=== PATIENT | male | born 1950 | race Caucasian/White ===

== ENCOUNTER 2016-07-30 14:59 | Emergency (ER) | payer OTHER ==
--- NOTE | 2016-07-30 15:18 | EDPHY ---
H & P Stated Complaint: right hip pain - Personal History Current Tetanus/Diphtheria Vaccine: Unsure Current Tetanus Diphtheria and Acellular Pertussis (TDAP): Unsure - Medical/Surgical History Hx Asthma: No Hx Chronic Respiratory Disease: No Hx Diabetes: No Hx Cardiac Disease: No Hx Renal Disease: No Hx Cirrhosis: No Hx Alcoholism: No Hx HIV/AIDS: No Hx Splenectomy or Spleen Trauma: No Other PMH: R hip replacement in 2014 - Social History Smoking Status: Never smoked Time Seen by Provider: 07/30/16 15:12 HPI/ROS: Chief complaint: Right hip pain History of present illness: This is a 66-year-old male who presents to the emergency department via EMS for right hip pain. Patient is concerned he dislocated his right hip. Patient had a right total hip replacement 2 years ago in [facility]. He dislocated it 1 year ago. He states today he was bending over putting on snow shoes when he felt a pop, this feels similar to when he dislocated his hip previously. He denies other associated signs or symptoms including no direct trauma to the site, no paresthesias or abnormal coolness the leg. No other trauma reported. Review of systems: A 10 point review of systems was obtained and other than described above was negative (Chema Terry) - Physical Exam Exam: General Appearance: Alert, nontoxic. Eyes: Pupils equal and round no injection. ENT: Mucous membranes moist. Respiratory: Chest is non tender, lungs are clear to auscultation. Cardiovascular: Regular rate and rhythm. DP and PT pulses 2+ bilaterally. Gastrointestinal: Abdomen is soft and non tender, no masses, bowel sounds normal. Musculoskeletal: Patient is tender in the right hip region. His right leg is shortened. He does not want to move the hip secondary to pain. He can move the ankle and the digits in the foot. Skin: No rashes or lesions. (Chema Terry) Constitutional: Initial Vital Signs Temperature (C) 36.6 C 07/30/16 15:04 Heart Rate 74 07/30/16 15:04 Respiratory Rate 18 07/30/16 15:04 Blood Pressure 155/104 H 07/30/16 15:04 O2 Sat (%) 97 07/30/16 15:04 O2 Delivery Mode [Procedural Non-Rebreather Mask 4th] O2 Delivery Mode [Procedural Non-Rebreather Mask 3rd] O2 Delivery Mode [Procedural Non-Rebreather Mask 2nd] O2 Delivery Mode [Procedural Non-Rebreather Mask 1st] O2 Delivery Mode [.Immediate Non-Rebreather Mask Pre-Procedure] O2 Delivery Mode Room Air O2 (L/minute) [Procedural 4th] 15 O2 (L/minute) [Procedural 3rd] 15 O2 (L/minute) [Procedural 2nd] 15 O2 (L/minute) [Procedural 1st] 15 O2 (L/minute) [.Immediate Pre- 15 Procedure] Allergies/Adverse Reactions: No Known Allergies Allergy (Unverified 03/17/15 16:59) Home Medications: Medication Instructions Recorded EPINEPHrine [Epipen] 0.3 mg IM ONCE #2 syr 03/17/15 predniSONE [prednisone 10mg (RX)] 40 mg PO DAILY 3 Days 03/17/15 Medical Decision Making - Diagnostics Imaging: Right hip x-ray shows a posterior dislocation Post reduction hip x-ray shows anatomic alignment (Chema Terry) Procedures: Procedure: Conscious sedation. Indication: Hip dislocation I was asked by DEBORAH Scruggs, to perform procedural sedation. The patient is an appropriate candidate to tolerate procedural sedation. The patient's vitals signs and mental status are appropriate. The risks, benefits and alternatives of the sedation were discussed with the patient. The patient is ASA classification 1E. The patient's Mallampati airway score was 2 and the patient did meet the 3-3-2 airway measurements. A time out was completed at 1604. The patient was sedated with 100mg IV Propofol. The patient was monitored with continuous pulse oximetry, system archive analyst and end tidal CO2. There were no complications and no significant hypoxemia. I performed both the sedation. The total time I spent at the bedside during the procedural sedation was 15 minutes. The patient was examined after the procedural sedation and has returned to their pre-sedation baseline with normal vital signs and a normal examination. (Angelique Grossman) Conscious sedation was performed by my primary supervising physician Dr. Angelique Grossman, please see report for complete details Procedure: Dislocation reduction. The dislocation of the right hip was reduced using standard traction technique without complications. Post reduction the patient's neurovascular exam is normal. Post reduction x-ray demonstrates reduction of the joint to the anatomic position. The procedure was performed by myself. (Chema Terry) ED Course/Re-evaluation: 1158: I was asked by DEBORAH Scruggs, to perform the procedural sedation. I examined the patient at this time. He is an appropriate candidate for sedation. His lungs are clear to auscultation and he has no significant pertinent medical history that would contraindicate the procedure. (Angelique Grossman) Patient seen in conjunction with my primary supervising physician Dr. Angelique Grossman. Patient presents to the emergency department concerned he has dislocated his right hip. X-ray confirms a dislocation. The leg is neurovascularly intact. I have consulted with Orthopedic group, Dr. Billy, he is comfortable with us reducing it in the emergency department. It is successfully reduced. He remains neurovascularly intact. Patient will be discharged home. He is asked to follow up with his orthopedic doctor this week for recheck. Strict return precautions are given. Patient voiced understanding and agreement with plan. (Chema Terry) Differential Diagnosis: Included but not limited to dislocation, fracture, sprain or strain (Chema Terry) - Data Points Medications Given: Discontinued Medications Hydromorphone HCl (Dilaudid) 1 mg IVP EDNOW ONE Stop: 07/30/16 15:31 Last Admin: 07/30/16 15:38 Dose: 1 mg Sodium Chloride (Ns) 1,000 mls @ 0 mls/hr IV ONCE ONE PRN Reason: Wide Open Stop: 07/30/16 16:33 Last Admin: 07/30/16 16:00 Dose: 1,000 mls Ondansetron HCl (Zofran) 4 mg IVP EDNOW ONE Stop: 07/30/16 15:32 Last Admin: 07/30/16 15:38 Dose: 4 mg Propofol (Diprivan) 100 mg IVP EDNOW ONE Stop: 07/30/16 16:34 Last Admin: 07/30/16 16:09 Dose: 100 mg Departure - Departure Disposition: Home, Routine, Self-Care Clinical Impression: Hip dislocation, right Condition: Good Instructions: Hip Dislocation (ED) Additional Instructions: Follow-up with your orthopedic doctor, Dr. Mcduffie, this week for recheck If symptoms recur or new symptoms develop return to the emergency department for recheck Referrals: Momo Ford MD [Primary Care Provider] - As per Instructions Floyd Mcduffie MD [Medical Doctor] - As per Instructions
[2016-07-30] MEDS ORDERED: HYDROmorphONE/DILAUDID 1 MG/ML SYR IVP ONE (15:30)
[2016-07-30] MEDS ORDERED: ONDANSETRON 4 MG/2 ML VIAL IVP ONE (15:31)
[2016-07-30] MEDS ORDERED: PROPOFOL/EMULSION 1,000 MG/100 ML BOTTLE IV ONE (15:47)
[2016-07-30] MEDS ORDERED: PROPOFOL 200 MG/20 ML VIAL ONE (15:52)
[2016-07-30] MEDS ORDERED: NS 1,000 ML IV ONE (16:32)
[2016-07-30] MEDS ORDERED: PROPOFOL 200 MG/20 ML VIAL IVP ONE (16:33)
--- NOTE | 2016-07-30 16:37 | DX ---
AP Supine Pelvis and Crosstable Lateral View of the Right Hip, 2 Views at 3:20 p.m. Clinical History: 66-year-old male who has had a prior right hip replacement and a prior dislocation, presenting to the ED complaining of right hip pain. Comparison Study: Right hip, dated May 16, 2015. Findings: The right total hip arthroplasty is again noted and the femoral head component is dislocate d superior to the prosthetic acetabular cup, very similar to the prereduction images on the study of May 16, 2015. The left hip is anatomically aligned. Impression: Dislocated right hip arthroplasty.
--- NOTE | 2016-07-30 17:01 | DX ---
Right Hip, Two Views History: Post reduction study. Comparison: Comparison to the previous examination from July 30, 2016 at 1528 hours. Findings: The superior dislocation of the femoral head prosthesis has been reduced with resultant mendy tomic alignment. No fracture is seen. Impression: Anatomic alignment of the total right hip arthroplasty following reduction.
[2016-07-30 17:25] VITALS: BP 143/87; PULSE 71; RESP 16; TEMP 98.8; O2SAT 97
== END 2016-07-30 17:26 | disposition home or self-care (01) ==
LOC: EDUNIT#
PROC: 0SS Lower Joints, Reposition (ICD-10-PCS; principal; 2016-07-30)
DX: T84.020A Dislocation of internal right hip prosthesis, initial encounter (principal); X58.XXXA Exposure to other specified factors, initial encounter; Y82.8 Other medical devices associated with adverse incidents; Y93.89 Activity, other specified
CPT/HCPCS: 27265; 73502; 96361; 96374; 96375; 99156; 99285; J1170; J2405; J2704

== ENCOUNTER → 2017-07-24 | Outpatient (CLI) | payer OTHER | LOC: BMCIMAGING 11:36 | PROVIDERS: ATTEND Internal Medicine | DX: J98.6 Disorders of diaphragm (principal) ==

== ENCOUNTER 2017-11-17 14:39 | Emergency (ER) | payer OTHER ==
[2017-11-17] MEDS ORDERED: HYDROmorphONE/DILAUDID 2 MG/ML INJ IVP ONE (14:53)
[2017-11-17] MEDS ORDERED: MIDAZOLAM 2 MG/2 ML VIAL IVP ONE (14:53)
--- NOTE | 2017-11-17 14:56 | EDPHY ---
H & P Stated Complaint: R hip pain Time Seen by Provider: 11/17/17 14:50 HPI/ROS: CHIEF COMPLAINT: Right hip dislocation HISTORY OF PRESENT ILLNESS: Patient is a 67-year-old man who comes to the emergency department complaining of right hip pain. He states that he was bending forward and a dislocated. This is a 3rd time it has happened in 4 year since it was replaced. It was done in [facility]. He follows here with Dr. Mcduffie who says that needs to be redone. He has normal movement in his ft. He denies other injuries. This happened just prior to arrival. REVIEW OF SYSTEMS: Constitutional: denies: chills, fever, recent illness, recent injury EENTM: denies: blurred vision, double vision, nose congestion Respiratory: denies: cough, shortness of breath Cardiac: denies: chest pain, irregular heart rate, lightheadedness, palpitations Gastrointestinal/Abdominal: denies: abdominal pain, diarrhea, nausea, vomiting, blood streaked stools Genitourinary: denies: dysuria, frequency, hematuria, pain Musculoskeletal: See HPI Skin: denies: lesions, rash, jaundice, bruising Neurological: denies: headache, numbness, paresthesia, tingling, dizziness, weakness Hematologic/Lymphatic: denies: blood clots, easy bleeding, easy bruising Immunologic/allergic: denies: HIV/AIDS, transplant EXAM: GENERAL: Well-appearing, well-nourished and in no acute distress. HEAD: Atraumatic, normocephalic. EYES: Pupils equal round and reactive to light, extraocular movements intact, sclera anicteric, conjunctiva are normal. ENT: TMs normal, nares patent, oropharynx clear without exudates. Moist mucous membranes. NECK: Normal range of motion, supple without lymphadenopathy or JVD. LUNGS: Breath sounds clear to auscultation bilaterally and equal. No wheezes rales or rhonchi. HEART: Regular rate and rhythm without murmurs, rubs or gallops. ABDOMEN: Soft, nontender, normoactive bowel sounds. No guarding, no rebound. No masses appreciated. BACK: No CVA tenderness, no spinal tenderness, step-offs or deformities EXTREMITIES: Right hip pain the leg held in flexion. Normal pulses and movement distally. NEUROLOGICAL: Cranial nerves II through XII grossly intact. Normal speech, normal gait. 5/5 strength, normal movement in all extremities, normal sensation PSYCH: Normal mood, normal affect. SKIN: Warm, dry, normal turgor, no visible rashes or lesions. Source: Patient Exam Limitations: No limitations - Personal History Current Tetanus/Diphtheria Vaccine: Unsure Current Tetanus Diphtheria and Acellular Pertussis (TDAP): Unsure - Medical/Surgical History Hx Asthma: No Hx Chronic Respiratory Disease: No Hx Diabetes: No Hx Cardiac Disease: No Hx Renal Disease: No Hx Cirrhosis: No Hx Alcoholism: No Hx HIV/AIDS: No Hx Splenectomy or Spleen Trauma: No Other PMH: R hip replacement in 2014, arthritis - Family History Significant Family History: No pertinent family hx - Social History Smoking Status: Never smoked Alcohol Use: Sober Drug Use: None Constitutional: Initial Vital Signs Temperature (C) 36.8 C 11/17/17 14:51 Heart Rate 85 11/17/17 14:51 Respiratory Rate 18 11/17/17 14:51 Blood Pressure 154/104 H 11/17/17 14:51 O2 Sat (%) 96 11/17/17 14:51 O2 Delivery Mode [Post Non-Rebreather Mask Procedure 2nd] O2 Delivery Mode [Post Non-Rebreather Mask Procedure 1st] O2 Delivery Mode [Procedural Non-Rebreather Mask 3rd] O2 Delivery Mode [Procedural Non-Rebreather Mask 2nd] O2 Delivery Mode [Procedural Non-Rebreather Mask 1st] O2 Delivery Mode [.Immediate Non-Rebreather Mask Pre-Procedure] O2 Delivery Mode Room Air O2 (L/minute) [Post Procedure 12 2nd] O2 (L/minute) [Procedural 3rd] 12 O2 (L/minute) [Procedural 2nd] 12 O2 (L/minute) [Procedural 1st] 12 O2 (L/minute) [.Immediate Pre- 12 Procedure] O2 (L/minute) 2 Allergies/Adverse Reactions: No Known Allergies Allergy (Verified 11/17/17 14:49) Home Medications: Medication Instructions Recorded Hydrocodone/APAP 5/325 [[place] 1 - 2 tab PO Q4H PRN #10 tab 11/17/17 5/325 (RX)] Meloxicam 11/17/17 Temazepam 11/17/17 Medical Decision Making - Diagnostics Imaging Results: Imaging Impressions Hip X-Ray 11/17/17 14:54 Impression: Superior right hip dislocation. Hip X-Ray 11/17/17 16:02 Impression: Good reduction of right total hip arthroplasty. Imaging: Discussed imaging studies w/ call or contact centre coach Radiologist Procedures: Procedure: Procedural sedation. Indication: The hip reduction A pre-sedation evaluation was completed on the patient just prior to the procedure. Patient is an appropriate candidate for procedural sedation with a [ normal] 3-3-2 rule assessment and a Mallampati airway score of class 2. The risks of the sedation were discussed including but not limited to dysrhythmia, need for airway intervention or general anesthesia, disability, ; and verbal consent obtained. A timeout was observed and patient's identity confirmed. The patient was sedated with ketamine and propofol. The patient was monitored with continuous pulse oximetry, capnography, and electronic device monitor. There were no complications and no significant hypoxemia. I remained at the bedside for the sedation. The total time I spent in the procedural sedation was 25 min. Orthopedic reduction: The patient is a tolerated the procedure well. Post reduction films are successful. ED Course/Re-evaluation: Patient was given Versed and Dilaudid initially and then later sedated with ketamine and propofol. He tolerated this well and his hip was reduced successfully on the 2nd attempt. 5:30 p.m. patient is doing much better. He feels much better. He is still slightly sedated. Differential Diagnosis: Partial list of the Differential diagnosis considered include but were not limited to; hip dislocation, fracture and although unlikely based on the history and physical exam, I also considered nerve injury, vascular injury. I discussed these differential diagnoses and the plan with the patient as well as the usual and expected course. The patient understands that the diagnosis is provisional and that in medicine we are not always correct and that further workup is often warranted. Usual and customary warnings were given. All of the patient's questions were answered. The patient was instructed to return to the emergency department should the symptoms at all worsen or return, otherwise to followup with the physician as we discussed. - Data Points Medications Given: Discontinued Medications Hydromorphone HCl (Dilaudid) 1 mg IVP EDNOW ONE Stop: 11/17/17 14:54 Last Admin: 11/17/17 15:20 Dose: 1 mg Ketamine HCl (Ketamine) 90 mg IVP EDNOW ONE Stop: 11/17/17 16:06 Last Admin: 11/17/17 16:05 Dose: 90 mg Ketamine HCl (Ketamine) 30 mg IVP EDNOW ONE Stop: 11/17/17 16:09 Last Admin: 11/17/17 16:08 Dose: 30 mg Ketamine HCl (Ketamine) 50 mg IVP EDNOW ONE Stop: 11/17/17 16:13 Last Admin: 11/17/17 16:12 Dose: 50 mg Midazolam HCl (Versed) 5 mg IVP EDNOW ONE Stop: 11/17/17 14:54 Last Admin: 11/17/17 15:24 Dose: 5 mg Propofol (Diprivan) 40 mg IVP EDNOW ONE Stop: 11/17/17 16:29 Last Admin: 11/17/17 16:12 Dose: 40 mg Departure - Departure Disposition: Home, Routine, Self-Care Clinical Impression: Hip dislocation, right Qualifiers: Encounter type: initial encounter Qualified Code(s): S73.004A - Unspecified dislocation of right hip, initial encounter Condition: Fair Instructions: Hip Dislocation (ED) Referrals: Patient,NotPresent [Primary Care Provider] - As per Instructions Floyd Mcduffie MD [Medical Doctor] - As per Instructions Prescriptions: Hydrocodone/APAP 5/325 [[place] 5/325 (RX)] 1 - 2 tab PO Q4H PRN #10 tab PRN Reason: Pain, Moderate
[2017-11-17] MEDS ORDERED: KETAMINE 200 MG/20 ML VIAL ONE (15:56)
[2017-11-17] MEDS ORDERED: PROPOFOL 200 MG/20 ML VIAL ONE (15:57)
[2017-11-17] MEDS ORDERED: KETAMINE 200 MG/20 ML VIAL IVP ONE ×2 (16:05→16:12)
[2017-11-17] MEDS ORDERED: KETAMINE 500 MG/10 ML VIAL IVP ONE (16:08)
[2017-11-17] MEDS ORDERED: PROPOFOL 200 MG/20 ML VIAL IVP ONE (16:28)
--- NOTE | 2017-11-17 16:52 | ASMTCAGE ---
CAGE Do you feel you ought to Answers: Yes cut down on your drinking or drug use? Do people annoy you by Answers: No criticizing your drinking or drug use? Do you feel guilty about Answers: No your drinking or drug use? Do you drink or use drugs Answers: No first thing in the morning (Eye French Translator)? Additional Comments Pt states he "has been going back and forth about quitting." Offered pt resources, pt unsure if he'd like them at this time. Per HERNAN Simmons, pt received conscious sedation prior to answering questions. CM will need to follow up with pt. Date Signed: 11/17/2017 04:51 PM Electronically Signed By:Cassie Cerda RN
--- NOTE | 2017-11-17 17:00 | ASMTCMCOM ---
CM Note CM Note Notes: Pt presented to the Emergency Department with a right hip dislocation. History includes two other hip dislocations and hip surgery. Pt lives alone in [place]. Met with pt secondary to a positive SBIRT screen. Pt reports drinking 2-4 drinks/day, 7 days/week. He states he drinks beer or vodka. CAGE completed. Pt reports "going back and forth about quitting." Offered pt resources, pt unsure if he'd like them at this time. Per HERNAN Simmons, pt received conscious sedation prior to questioning. Discharge plan remains unclear at this time. If pt is admitted, CM will continue to follow and will offer resources again prior to d/c. Date Signed: 11/17/2017 05:00 PM Electronically Signed By:Cassie Cerda RN
--- NOTE | 2017-11-17 18:39 | ASMTCMCOM ---
CM Note CM Note Notes: Asked to see pt by HERNAN Simmons for assistance with transportation. Met with pt - pt lives above [place]. Pt declines having any friends or family in the area. Pt reports having the ability to pay for a taxi cab home. Pt diaphoretic, pale and feeling disoriented. [place] alerted. Pt not ready for discharge at this time. Attempted to speak with pt about alcohol use/resources again. Pt feeling too poorly and foggy, not appropriate time for alcohol discussion. Encouraged pt to avoid alcohol use this evening following discharge. Call placed to [facility] at pt's request . Spoke with Sumit, confirmed a taxi would be available to transport pt 5 miles beyond [place] this evening ([address] [place] [address], [place] [address]). Sumit confirmed and verified cost would be $2.25/mile. Sumit stated pt may have to prepay for trip with a credit card. Update provided to ARSLAN Lopez, HERNAN [place] and pt - pt agreeable to prepaying. Information for discharge provided to Rosemarie. CM available for any further issues or concerns. Date Signed: 11/17/2017 06:39 PM Electronically Signed By:Cassie Cerda RN
[2017-11-17 18:49] VITALS: BP 143/108
== END 2017-11-17 18:54 | disposition home or self-care (01) ==
LOC: EDUNIT#
PROC: 0SS9XZZ Reposition Right Hip Joint, External Approach (ICD-10-PCS; principal; 2017-11-17)
DX: T84.020A Dislocation of internal right hip prosthesis, initial encounter (principal); Y79.2 Prosthetic and other implants, materials and accessory orthopedic devices associated with adverse incidents
CPT/HCPCS: 27265; 73502; 96374; 96375; 99152; 99285; J1170; J2250; J2704

== ENCOUNTER 2017-11-19 01:09 | Emergency (ER) | payer OTHER ==
[2017-11-19] MEDS ORDERED: PROPOFOL 200 MG/20 ML VIAL ONE ×2 (01:20)
--- NOTE | 2017-11-19 01:20 | EDPHY ---
H & P Stated Complaint: R hip dislocation Time Seen by Provider: 11/19/17 01:14 HPI/ROS: HPI The patient presents with presumed right hip dislocation which occurred at about 11:00 p.m. Last night. The patient has a history of right hip arthroplasty of some sort performed and [facility]. He has had multiple dislocations of this hip, last was just 2 days ago. He was getting out of bed when he felt a pop and felt that his hip was dislocated. He called 911 and he is transferred here by paramedics. He received a total of fentanyl 300 mcg and ketamine 200 mg. He is unable to provide much history at this point in time. REVIEW OF SYSTEMS Constitutional: No fever, no chills. Eyes: No discharge. ENT: No sore throat. Cardiovascular: No chest pain, no palpitations. Respiratory: No cough, no shortness of breath. Gastrointestinal: No abdominal pain, no vomiting. Genitourinary: No hematuria. Musculoskeletal: No back pain. Skin: No rashes. Neurological: No headache. PMHx: [place], now being followed by Dr. Mcduffie, likely will require revision. Soc Hx: [place], marijuana use PHYSICAL General Appearance: Alert, no distress Eyes: Pupils equal and round no pallor or injection ENT, Mouth: Mucous membranes moist Respiratory: There are no retractions, lungs are clear to auscultation Cardiovascular: Regular rate and rhythm Gastrointestinal: Abdomen is soft and non-tender, no masses, bowel sounds normal Neurological: A&O, moves all extremities Skin: Warm and dry, no rashes Musculoskeletal: Neck is supple non tender Extremities: Right hip is tender to palpation with limited range of motion secondary to pain, 2+ DP pulses, sensation intact to light touch Psychiatric: Patient is oriented X 3, there is no agitation Source: Patient, EMS, Old records Exam Limitations: No limitations - Personal History Current Tetanus Diphtheria and Acellular Pertussis (TDAP): Yes - Medical/Surgical History Hx Asthma: No Hx Chronic Respiratory Disease: No Hx Diabetes: No Hx Cardiac Disease: No Hx Renal Disease: No Hx Cirrhosis: No Hx Alcoholism: No Hx HIV/AIDS: No Hx Splenectomy or Spleen Trauma: No Other PMH: R hip replacement in 2014, arthritis - Social History Smoking Status: Never smoked Constitutional: Initial Vital Signs Temperature (C) 36.6 C 11/19/17 01:15 Heart Rate 84 11/19/17 01:15 Respiratory Rate 16 11/19/17 01:15 Blood Pressure 172/108 H 11/19/17 01:15 O2 Sat (%) 96 11/19/17 01:15 O2 Delivery Mode [Post Non-Rebreather Mask Procedure 2nd] O2 Delivery Mode [Post Non-Rebreather Mask Procedure 1st] O2 Delivery Mode [Procedural Non-Rebreather Mask 2nd] O2 Delivery Mode [Procedural Non-Rebreather Mask 1st] O2 Delivery Mode [.Immediate Non-Rebreather Mask Pre-Procedure] O2 Delivery Mode Room Air O2 (L/minute) [Post Procedure 15 2nd] O2 (L/minute) [Post Procedure 15 1st] O2 (L/minute) [Procedural 2nd] 15 O2 (L/minute) [Procedural 1st] 15 O2 (L/minute) [.Immediate Pre- 15 Procedure] O2 (L/minute) 15 Allergies/Adverse Reactions: No Known Allergies Allergy (Verified 11/19/17 01:15) Home Medications: Medication Instructions Recorded Hydrocodone/APAP 5/325 [[place] 1 - 2 tab PO Q4H PRN #10 tab 11/17/17 5/325 (RX)] Meloxicam 11/17/17 Temazepam 11/17/17 Medical Decision Making - Diagnostics Imaging Results: Right hip plain films two views show hip dislocation, interpreted by me, radiology interpretation pending. Repeat right hit plain film single view shows prosthesis in appropriate position , interpreted by wa, radiology interpretation pending. Procedures: PROCEDURAL SEDATION Procedure: Procedural sedation. Indication: Right hip dislocation The patient is an appropriate candidate to tolerate procedural sedation. The patient's vital signs and mental status are appropriate. The risks, benefits and alternatives of the sedation were discussed with the patient. The patient is ASA classification 2. The patient's Mallampati airway score was 1 and the patient did meet the 3-3-2 airway measurements. A time out was completed. The patient was sedated with propofol fall 90 mg. The patient was monitored with continuous pulse oximetry, media monitor and end tidal CO2. There were no complications and no significant hypoxemia. I performed both the sedation and the procedure. The total time I spent at the bedside during the procedural sedation was 10 minutes. The patient was examined after the procedural sedation and has returned to their pre-sedation baseline with normal vital signs and a normal examination. REDUCTION Procedure: Dislocation reduction. Indication: Dislocation The right hip was reduced in the usual fashion without complications. Post reduction the patient's neurovascular exam is normal. Post reduction x-ray demonstrates reduction of the joint to the anatomic position. The procedure was performed by myself. Differential Diagnosis: 67-year-old male with history of right hip total arthroplasty and frequent dislocation presents with right hip pain with presumed dislocation. He is brought in by ambulance, he is sedated and received fentanyl and ketamine prior to arrival here. As I attempted dislocation at the bedside without success. Plan for x-ray. X-ray demonstrates hip is dislocated. Patient underwent procedural sedation with appropriate reduction of his hip. Given that this is his 2nd dislocation in 2 days I consulted with the orthopedist contact center analyst for Dr. Mcduffie, Dr. De Oliveira. He recommends placing the patient in a knee immobilizer and discharging the patient. Dr. Mcduffie will be in the clinic this morning and can see the patient for further evaluation. The patient is okay with this plan. He was placed in a knee immobilizer and discharged. - Data Points Medications Given: Discontinued Medications Fentanyl (Sublimaze) 100 mcg IVP EDNOW ONE Stop: 11/19/17 02:31 Last Admin: 11/19/17 02:30 Dose: 100 mcg Ibuprofen (Motrin) 600 mg PO EDNOW ONE Stop: 11/19/17 03:57 Last Admin: 11/19/17 03:57 Dose: 600 mg Propofol (Diprivan) 90 mg IVP EDNOW ONE Stop: 11/19/17 02:32 Last Admin: 11/19/17 02:30 Dose: 90 mg Departure - Departure Disposition: Home, Routine, Self-Care Clinical Impression: Hip dislocation, right Qualifiers: Encounter type: initial encounter Qualified Code(s): S73.004A - Unspecified dislocation of right hip, initial encounter Condition: Good Instructions: Hip Dislocation (ED), Procedural Sedation (ED) Additional Instructions: You should call Dr. Mcduffie in the morning to make an appointment to be seen in the next 1-2 days. Please keep the knee immobilizer in place. Referrals: Floyd Mcduffie MD [Medical Doctor] - As per Instructions
[2017-11-19] MEDS ORDERED: fentaNYL 100 MCG/2 ML INJ ONE (02:03)
[2017-11-19] MEDS ORDERED: fentaNYL 100 MCG/2 ML INJ IVP ONE (02:30)
[2017-11-19] MEDS ORDERED: PROPOFOL 200 MG/20 ML VIAL IVP ONE (02:31)
[2017-11-19] MEDS ORDERED: IBUPROFEN 600 MG TAB PO ONE ×2 (03:55→03:56)
[2017-11-19] MEDS ORDERED: ONDANSETRON 4 MG/2 ML VIAL ONE (05:07)
[2017-11-19] MEDS ORDERED: ONDANSETRON 4 MG/2 ML VIAL IVP ONE (05:09)
[2017-11-19 05:18] VITALS: BP 131/68
== END 2017-11-19 05:48 | disposition home or self-care (01) ==
LOC: EDUNIT#
PROC: 0SS9XZZ Reposition Right Hip Joint, External Approach (ICD-10-PCS; principal; 2017-11-19)
DX: T84.020A Dislocation of internal right hip prosthesis, initial encounter (principal); Y79.2 Prosthetic and other implants, materials and accessory orthopedic devices associated with adverse incidents
CPT/HCPCS: 27265; 73502; 96374; 96375; 99152; 99285; J2405; J2704; J3010; L1830

== ENCOUNTER 2017-11-20 08:39 | Emergency (ER) | payer OTHER ==
[2017-11-20] MEDS ORDERED: PROPOFOL 200 MG/20 ML VIAL IVP ONE (09:19)
[2017-11-20] MEDS ORDERED: fentaNYL 100 MCG/2 ML INJ IVP ONE (09:19)
[2017-11-20] MEDS ORDERED: MIDAZOLAM 2 MG/2 ML VIAL IVP ONE (09:19)
[2017-11-20] MEDS ORDERED: MIDAZOLAM 10 MG/2 ML VIAL ONE (09:22)
[2017-11-20] MEDS ORDERED: fentaNYL 100 MCG/2 ML INJ ONE (09:22)
[2017-11-20] MEDS ORDERED: PROPOFOL 200 MG/20 ML VIAL ONE (09:22)
--- NOTE | 2017-11-20 09:25 | EDPHY ---
H & P Stated Complaint: R hip disloc Time Seen by Provider: 11/20/17 09:22 HPI/ROS: HPI: This is a 67-year-old male who presents with Chief Complaint: Right hip dislocation Location: Right hip Quality: Dislocation Duration: 2 and 0.5 hr prior to arrival Signs and Symptoms: No bleeding, no radiation, no numbness, no weakness, no tingling, no incontinence, + decreased range of motion, no swelling,+ pain, no fever Timing: Acute Severity: Moderate Context: Patient reports that she had a total right posterior hip arthroplasty in [facility] presents today via EMS with right hip dislocation around 7:00 a.m. He reports that he was lying in bed wearing his knee immobilizer with a wedged between his legs. He shifted to the side and felt his right hip dislocate with immediate, constant, severe pain[place] EMS to transport him down to the emergency room. Patient reports that this is his 5th right hip dislocation since his surgery. He follows with Dr. Mcduffie. He was seen in this emergency room for the same problem on 11/17 as well as 11/19. Patient reports that the ketamine that they gave him last time made him hallucinate and he is refusing for to be given this time. He is able to move his lower leg and wiggle his toes without any difficulty. Denies paresthesias/numbness. Modifying Factors: EMS gave pain medications en route Comment: ROS: see HPI Constitutional: No fever, no chills, no weight loss Eyes: No blurred vision Respiratory: No shortness of breath, no cough Cardiovascular: No chest pain Gastrointestinal: No nausea, no vomiting no diarrhea Genitourinary: No dysuria Extremities: No myalgias Neurologic: No weakness, no numbness Skin: No rashes Hematologic: No bruising, no bleeding MEDICAL/SURGICAL/SOCIAL HISTORY: Medical history: Generally healthy. Does not take any regular medications. Surgical history: Right total hip arthroplasty Social history: Nonsmoker. Retired. CONSTITUTIONAL: Pleasant elderly white male, lying flat on his back, awake and alert, no obvious distress HEENT: Atraumatic and normocephalic. NECK: supple, no midline tenderness, flexion 45 degrees, extension 45 degrees, right and left lateral flexion 45 degrees. No meningismus. Cardiovascular: Normal S1/S2, regular rate, regular rhythm, without murmur rub or gallop. PULMONARY/CHEST: Symmetrical and nontender. no crepitus. Clear to auscultation bilaterally. Good air movement. No accessory muscle usage. ABDOMEN: Soft, nondistended, nontender, no ecchymosis. PELVIC: no pain with rocking; bilateral hips flexion 125 degrees, extension 30 degrees, with no pain internal rotation and no pain external rotation. BACK: No midline tenderness, no paraspinous spasm, deep tendon reflexes 2/2, no pain with straight leg raise, No foot drop. Achilles reflexes are equal bilaterally. Able to walk on heels and toes without difficulty. EXTREMITIES: 2/2 pulses, strength 5/5, right lower extremity shows him wearing pants and a right knee immobilizer. Able to feel his toes and wiggle all 5. Right leg is externally rotated with mild tenderness over the greater trochanter. good light touch sensation. no deformities, no clubbing, no cyanosis or edema. NEUROLOGICAL: no focal neuro deficits. GCS 15. Light touch sensation intact. SKIN: Warm and dry, no erythema. no rash. Good capillary refill. Source: Patient, Old records Exam Limitations: No limitations - Medical/Surgical History Hx Asthma: No Hx Chronic Respiratory Disease: No Hx Diabetes: No Hx Cardiac Disease: No Hx Renal Disease: No Hx Cirrhosis: No Hx Alcoholism: No Hx HIV/AIDS: No Hx Splenectomy or Spleen Trauma: No Other PMH: R hip replacement in 2014, arthritis - Social History Smoking Status: Never smoked Constitutional: Initial Vital Signs Temperature (C) 37.1 C 11/20/17 08:43 Heart Rate 79 11/20/17 08:43 Respiratory Rate 16 11/20/17 08:43 Blood Pressure 149/101 H 11/20/17 08:43 O2 Sat (%) 95 11/20/17 08:43 O2 Delivery Mode [Post Non-Rebreather Mask Procedure 1st] O2 Delivery Mode [Procedural Non-Rebreather Mask 2nd] O2 Delivery Mode [Procedural Non-Rebreather Mask 1st] O2 Delivery Mode Non-Rebreather Mask O2 (L/minute) [Post Procedure 15 1st] O2 (L/minute) [Procedural 2nd] 15 O2 (L/minute) [Procedural 1st] 15 O2 (L/minute) 15 Allergies/Adverse Reactions: ketamine Allergy (Verified 11/20/17 08:47) Home Medications: Medication Instructions Recorded Hydrocodone/APAP 325 [[place] 1 - 2 tab PO Q4H PRN #10 tab 11/17/17 5/325 (RX)] Meloxicam 11/17/17 Temazepam 11/17/17 Medical Decision Making - Diagnostics Imaging Results: Imaging Impressions Hip X-Ray 11/20/17 08:45 Impression: Recurrent right hip dislocation. Pelvis X-Ray 11/20/17 09:56 Impression: Apparent interval reduction of right hip dislocation, as assessed on this single AP view. Procedures: Procedure: Procedural sedation. A pre-sedation evaluation was completed on the patient at 0935. Patient is an appropriate candidate for procedural sedation. The risks of the sedation were discussed with the patient. A time out was completed. The patient was sedated with Versed 5 mg, fentanyl 100 mcg, propofol 40 mg. The patient was monitored with continuous pulse oximetry and security monitor. There were no complications and no significant hypoxemia. I remained at the bedside for the sedation. The total time I spent in the procedural sedation was 9412-5492. Procedure: Dislocation reduction. The dislocation of the right hip was reduced using counter traction technique without complications. Post reduction the patient's neurovascular exam is normal. Post reduction x-ray demonstrates reduction of the joint to the anatomic position. The procedure was performed by myself. ED Course/Re-evaluation: Right hip x-ray obtained upon arrival; reviewed via PACs and shows recurrent hip dislocation. Moved to trauma room for procedural sedation. Will give Versed 5 mg, fentanyl 100 mcg and Propofol 40 mg to start. Reduction performed with counter traction x1 attempt. 1000: ED decision to consult Orthopedics as is the patient's 3rd dislocation in 1 week. He lives alone. Would benefit from admission and surgery to correct hardware deficit. 1012: Post reduction x-ray at bedside reviewed by myself and shows normal anatomic alignment without any chip fractures Spoke with Dr. Calero who also consulted Dr. Champagne who was willing to consult and schedule outpatient hip replacement revision surgery. They recommend hip abduction orthosis. [facility] consulted to come and fit the patient for this brace in the emergency room. 1130: Reassessed patient who reports that pain is minimal. Updated him on plan and he feels comfortable with this at this time. 1315: Fitted for orthotic. Ambulating down held her restroom and room without any pain or discomfort. Patient is to call Dr. Thomas office to follow up outpatient to reschedule total hip arthroplasty revision. Cap called to be transported home. No signs of neurovascular compromise/tenting of skin/compartment syndrome/ extremities and joints examined above and below area of concern and are neurovascularly intact. This patient was seen under the supervision of my secondary supervising physician. I evaluated care for this patient independently. Discussed this patient with Dr. Galvez who did not see the patient. Differential Diagnosis: Differential diagnosis includes but is not limited to right hip dislocation, nerve injury, musculoskeletal strain, hardware malfunction. - Data Points Medications Given: Discontinued Medications Fentanyl (Sublimaze) 100 mcg IVP EDNOW ONE Stop: 11/20/17 09:20 Last Admin: 11/20/17 09:35 Dose: 100 mcg Midazolam HCl (Versed) 5 mg IVP EDNOW ONE Stop: 11/20/17 09:20 Last Admin: 11/20/17 09:35 Dose: 5 mg Propofol (Diprivan) 40 mg IVP EDNOW ONE Stop: 11/20/17 09:20 Last Admin: 11/20/17 09:35 Dose: 40 mg Departure - Departure Disposition: Home, Routine, Self-Care Clinical Impression: History of total right hip replacement Dislocation of hip, right, closed Qualifiers: Encounter type: initial encounter Qualified Code(s): S73.004A - Unspecified dislocation of right hip, initial encounter Condition: Good Instructions: Hip Dislocation (ED), Procedural Sedation (ED) Additional Instructions: Please limit mobility and wear hip abduction orthotic continuously except to shower. Activity: Do not bear weight or use injured extremity until seen by your referral physician. Follow-Up: Please follow-up as noted above. Follow-up sooner if your condition worsens or if you develop any new problems. Call as soon as possible for an appointment. Be clear when you call for an appointment that this is an Emergency Department follow-up. Contact the Emergency Department if you have trouble arranging follow-up care. Our referrals are not based on your insurance network. When time allows, contact your insurance carrier to verify the referral physician is in your plan. If not, get a referral for an in-network operations analyst. Referrals: Jerry Champagne MD [Medical Doctor] - As per Instructions
[2017-11-20 13:31] VITALS: BP 132/85
== END 2017-11-20 13:28 | disposition home or self-care (01) ==
LOC: EDUNIT#
DX: T84.020A Dislocation of internal right hip prosthesis, initial encounter (principal); Z96.641 Presence of right artificial hip joint; Y79.2 Prosthetic and other implants, materials and accessory orthopedic devices associated with adverse incidents
CPT/HCPCS: 27265; 72170; 73502; 99152; 99153; 99285; J2250; J2704; J3010

== ENCOUNTER 2017-11-21 07:03 | Inpatient (IN) | payer OTHER ==
[2017-11-21] MEDS ORDERED: DIAZEPAM 5 MG/ML 1 ML SYR IVP ONE (07:08)
--- NOTE | 2017-11-21 07:11 | EDPHY ---
H & P Time Seen by Provider: 11/21/17 07:06 HPI/ROS: CHIEF COMPLAINT: Right hip dislocation HISTORY OF PRESENT ILLNESS: The patient is a 67-year-old man this is his 4th visit in the last 5 days for right hip dislocation. He had his hip replaced in [facility] few years ago. It is dislocated several times a needs to be revised. He was seen by me here a few days ago and reduced and follow up with Dr. Mcduffie. They had revision planned. Since then however he has been back twice and now this is his 4th visit for the same thing. On his 2nd visit he was given a knee brace which did not seem to help. On the 3rd visit which was yesterday Wardrobe Specialist came and placed him in a hip brace. Today he was lying in bed with the brace on when he rotated to get out of bed and his hip again dislocated. He has normal movement and sensation in his leg distally. REVIEW OF SYSTEMS: Constitutional: denies: chills, fever, recent illness, recent injury EENTM: denies: blurred vision, double vision, nose congestion Respiratory: denies: cough, shortness of breath Cardiac: denies: chest pain, irregular heart rate, lightheadedness, palpitations Gastrointestinal/Abdominal: denies: abdominal pain, diarrhea, nausea, vomiting, blood streaked stools Genitourinary: denies: dysuria, frequency, hematuria, pain Musculoskeletal: See HPI Skin: denies: lesions, rash, jaundice, bruising Neurological: denies: headache, numbness, paresthesia, tingling, dizziness, weakness Hematologic/Lymphatic: denies: blood clots, easy bleeding, easy bruising Immunologic/allergic: denies: HIV/AIDS, transplant EXAM: GENERAL: Well-appearing, well-nourished and in no acute distress. HEAD: Atraumatic, normocephalic. EYES: Pupils equal round and reactive to light, extraocular movements intact, sclera anicteric, conjunctiva are normal. ENT: TMs normal, nares patent, oropharynx clear without exudates. Moist mucous membranes. NECK: Normal range of motion, supple without lymphadenopathy or JVD. LUNGS: Breath sounds clear to auscultation bilaterally and equal. No wheezes rales or rhonchi. HEART: Regular rate and rhythm without murmurs, rubs or gallops. ABDOMEN: Soft, nontender, normoactive bowel sounds. No guarding, no rebound. No masses appreciated. BACK: No CVA tenderness, no spinal tenderness, step-offs or deformities EXTREMITIES: Right hip dislocation, significant pain, normal movement of knee and foot. Normal pulses. NEUROLOGICAL: Cranial nerves II through XII grossly intact. Normal speech, normal gait. 5/5 strength, normal movement in all extremities, normal sensation PSYCH: Normal mood, normal affect. SKIN: Warm, dry, normal turgor, no visible rashes or lesions. Source: Patient Exam Limitations: No limitations - Medical/Surgical History Hx Asthma: No Hx Chronic Respiratory Disease: No Hx Diabetes: No Hx Cardiac Disease: No Hx Renal Disease: No Hx Cirrhosis: No Hx Alcoholism: No Hx HIV/AIDS: No Hx Splenectomy or Spleen Trauma: No Other PMH: R hip replacement in 2014, arthritis - Family History Significant Family History: No pertinent family hx - Social History Smoking Status: Never smoked Alcohol Use: Sober Drug Use: None Constitutional: Initial Vital Signs Temperature (C) 36.8 C 11/21/17 07:14 Heart Rate 67 11/21/17 07:14 Respiratory Rate 16 11/21/17 07:14 Blood Pressure 146/89 H 11/21/17 07:14 O2 Sat (%) 92 11/21/17 07:14 O2 Delivery Mode [Procedural Room Air 2nd] O2 Delivery Mode [Procedural Non-Rebreather Mask 1st] O2 Delivery Mode [.Immediate Non-Rebreather Mask Pre-Procedure] O2 Delivery Mode Room Air O2 (L/minute) [Procedural 1st] 15 O2 (L/minute) [.Immediate Pre- 15 Procedure] Allergies/Adverse Reactions: ketamine Allergy (Verified 11/20/17 08:47) Home Medications: Medication Instructions Recorded Meloxicam 7.5 mg PO BID PRN 11/17/17 Temazepam [Restoril 15 MG (*)] 15 mg PO HSPRN PRN 11/17/17 Albuterol [Proventil Inhaler HFA 1 - 2 puffs IH DAILY PRN 11/21/17 (*)] Glucosamine Sulfate [Glucosamine 500 mg PO DAILY 11/21/17 Sulfate 500 MG (*)] Hydrocodone/APAP 5/325 [[place] 1 - 2 tab PO Q4H PRN 11/21/17 5/325 (RX)] Ibuprofen [Motrin (*)] 200 mg PO DAILY PRN 11/21/17 Multivitamins [Multivitamin (*)] 1 each PO DAILY 11/21/17 Tears/Dextran 70/Hypromellose 1 drop EACHEYE Q2 PRN 11/21/17 [Natural Balance Tears (*)] amLODIPine BESYLATE [Norvasc 5 mg 5 mg PO DAILY 11/21/17 (*)] Medical Decision Making - Diagnostics Imaging Results: Imaging Impressions Hip X-Ray 11/21/17 07:13 Impression: Superior right hip dislocation. Imaging: I viewed and interpreted images myself Procedures: Procedure: Procedural sedation. Indication: Orthopedic reduction. A pre-sedation evaluation was completed on the patient just prior to the procedure. Patient is an appropriate candidate for procedural sedation with a normal 3-3-2 rule assessment and a Mallampati airway score of class 2. The risks of the sedation were discussed including but not limited to dysrhythmia, need for airway intervention or general anesthesia, disability, ; and verbal consent obtained. A timeout was observed and patient's identity confirmed. The patient was sedated with fentanyl and propofol. The patient was monitored with continuous pulse oximetry, capnography, and monitoring tech. There were no complications and no significant hypoxemia. I remained at the bedside for the sedation. The total time I spent in the procedural sedation was 16 minutes. Orthopedic reduction: The patient's right hip was reduced with traction. It required repeated reductions during the procedure and he was placed in a pelvic binder. ED Course/Re-evaluation: 8:20 a.m. I spoke with Ann who accepted for the medical service. She requests that we paged the on-call Ortho. I have previously page Dr. Champagne is office but he will not be available till 9:00 a.m.. 8:25 a.m. I discussed the case with Dr. Champagne who was professional nursing assistant. He suggested I call [facility] on-call physician 8:40 a.m. the patient's hip was successfully reduced. It dislocated again twice during the procedure when he would wake up and flex his thigh. I placed him in a pelvic binder in an effort to hold that stable. 9:30 a.m. I spoke with Aimee the physician fish hatchery assistant for Dr. Mcduffie. She will have Dr. Mcduffie consult today while the patient is in the hospital. Differential Diagnosis: Partial list of the Differential diagnosis considered include but were not limited to; hip dislocation, nerve injury, vascular injury, fracture and although unlikely based on the history and physical exam, I also considered infection. - Data Points Medications Given: Discontinued Medications Diazepam (Valium) 5 mg IVP EDNOW ONE Stop: 11/21/17 07:09 Last Admin: 11/21/17 07:23 Dose: 5 mg Fentanyl (Sublimaze) 100 mcg IVP ONCE ONE Stop: 11/21/17 08:01 Last Admin: 11/21/17 08:00 Dose: 100 mcg Lactated Ringer's (Lr) 1,000 mls @ 0 mls/hr IV EDNOW ONE PRN Reason: Wide Open Stop: 11/21/17 08:01 Last Admin: 11/21/17 08:00 Dose: 1,000 mls Propofol (Diprivan) 40 mg IVP EDNOW ONE Stop: 11/21/17 08:01 Last Admin: 11/21/17 08:00 Dose: 40 mg Departure - Departure Disposition: [facility] Inpatient Acute Clinical Impression: Hip dislocation, right Qualifiers: Encounter type: initial encounter Qualified Code(s): S73.004A - Unspecified dislocation of right hip, initial encounter Condition: Fair
[2017-11-21] MEDS ORDERED: LR 1,000 ML IV ONE (08:00)
[2017-11-21] MEDS ORDERED: fentaNYL 100 MCG/2 ML INJ IVP ONE (08:00)
[2017-11-21] MEDS ORDERED: PROPOFOL 200 MG/20 ML VIAL IVP ONE (08:00)
[2017-11-21] MEDS ORDERED: fentaNYL 100 MCG/2 ML INJ ONE (08:18)
[2017-11-21] MEDS ORDERED: PROPOFOL 200 MG/20 ML VIAL ONE (08:18)
[2017-11-21] MEDS ORDERED: ONDANSETRON DISINTEGRATING 4 MG TAB PO PRN (09:01)
[2017-11-21] MEDS ORDERED: HYDROmorphone HCL 0.5 MG/0.5 ML SYR IVP PRN (09:01)
[2017-11-21] MEDS ORDERED: ONDANSETRON 4 MG/2 ML VIAL IVP PRN (09:01)
[2017-11-21] MEDS ORDERED: NS 1,000 ML IV SCH (09:15)
[2017-11-21] MEDS ORDERED: POLYETHYLENE GLYCOL 3350 17 GM PKT PO PRN ×2 (12:38→12:40)
[2017-11-21] MEDS ORDERED: MAGNESIUM HYDROXIDE 30 ML UDCUP PO PRN ×2 (12:38→12:40)
[2017-11-21] MEDS ORDERED: BISACODYL 10 MG SUPP PR PRN ×2 (12:38→12:40)
[2017-11-21] MEDS ORDERED: LACTULOSE 20 GM/30 ML UDCUP PO PRN ×2 (12:38→12:40)
[2017-11-21] MEDS ORDERED: TEARS/DEXTRAN 70/HYPROMELLOSE 15 ML OPHT.BTL EACHEYE PRN (13:14)
[2017-11-21] MEDS ORDERED: Meloxicam [Meloxicam] 7.5 MG PO PRN (13:14)
[2017-11-21] MEDS ORDERED: ALBUTEROL 60 PUFFS/8 GM MDI IH PRN (13:14)
--- NOTE | 2017-11-21 13:44 | PDGENHP ---
History and Physical - Chief Complaint right hip dislocation - History of Present Illness 67 yo male with h/o osteoarthritis s/p right hip replacement in [facility] presents to ED with recurrent dislocation. He has had 5 dislocations in the same number of days. Had planned for revision surgery on 12/06, but when simply getting out of bed this am, his hip again dislocated. He underwent reduction in the ED with post-reduction films showing good position. His pain is currently controlled. He is admitted for pain control and consideration of revision sooner than planned due to recurrent dislocations. History Information - Allergies/Home Medication List Allergies/Adverse Reactions: ketamine Allergy (Verified 11/20/17 08:47) Home Medications: Meloxicam 7.5 mg PO BID PRN 11/17/17 [Last Taken 11/17/17] Temazepam [Restoril 15 MG (*)] 15 mg PO HS PRN 11/17/17 [Last Taken 11/17/17] Albuterol [Proventil Inhaler HFA (*)] 1 - 2 puffs IH DAILY PRN 11/21/17 [Last Taken Unknown] Glucosamine Sulfate [Glucosamine Sulfate 500 MG (*)] 500 mg PO DAILY 11/21/17 [ Last Taken 11/20/17] Hydrocodone/APAP 5/325 [[place] 5/325 (RX)] 1 - 2 tab PO Q4H PRN 11/21/17 [Last Taken 11/20/17 09:00] Ibuprofen [Motrin (*)] 200 mg PO DAILY PRN 11/21/17 [Last Taken Unknown] Multivitamins [Multivitamin (*)] 1 each PO DAILY 11/21/17 [Last Taken 11/20/17] Tears/Dextran 70/Hypromellose [Natural Balance Tears (*)] 1 drop EACHEYE Q2 PRN 11/21/17 [Last Taken Unknown] amLODIPine BESYLATE [Norvasc 5 mg (*)] 5 mg PO DAILY 11/21/17 [Last Taken ] I have personally reviewed and updated: family history, medical history, social history, surgical history - Past Medical History arthritis - Surgical History Additional surgical history: prior JOSAFAT 2014 - Family History Positive for: non-pertinent - Social History Smoking Status: Never smoked Alcohol Use: Sober Drug Use: None Additional social history: Lives independently Review of Systems Review of Systems: ROS: 10pt was reviewed & negative except for what was stated in HPI & below Physical Exam Physical Exam: Temp Pulse Resp BP Pulse Ox 36.9 C 68 16 139/95 H 98 11/21/17 09:54 11/21/17 09:54 11/21/17 09:54 11/21/17 09:54 11/21/17 09:54 O2 (L/minute) 2 Constitutional: no apparent distress Eyes: PERRL Ears, Nose, Mouth, Throat: moist mucous membranes Cardiovascular: regular rate and rhythym, no murmur, rub, or gallop Respiratory: no respiratory distress, clear to auscultation Gastrointestinal: normoactive bowel sounds, soft, non-tender abdomen Skin: warm Musculoskeletal: full muscle strength Neurologic: AAOx3 Psychiatric: interacting appropriately Assessment & Plan Assessment: Hip dislocation, right (Acute) - recurrent dislocations. S/P reduction in ED with good position on post-reduction film. Now with hip stabilizer, pain controlled. -ortho to consult, will likely undergo revision during this hospitalization given recurrent dislocations -pain control with nsaid's, vicodin, prn dilaudid Constipation - likely hastened by opiates -bowel protocol Hypertension - cont amlodipine DVT PPLX - high risk with mobility issues, lovenox, hold 24 hrs prior to surgery Full code Dispo - change to inpt as will need ongoing hospitalization for hip stabilization and likely revision of JOSAFAT
[2017-11-21] MEDS: IBUPROFEN 600 MG TAB PO PRN (14:06)
[2017-11-21] MEDS: HYDROCODONE/APAP 5/325 TAB PO PRN (17:25)
[2017-11-21] MEDS: amLODIPine BESYLATE 5 MG TAB PO SCH (17:25)
[2017-11-21] MEDS: SENNOSIDES/DOCUSATE SODIUM TAB PO SCH ×2 (17:27→21:30)
[2017-11-21] MEDS ORDERED: SENNOSIDES/DOCUSATE SODIUM TAB PO SCH (21:00)
[2017-11-21] MEDS: DIAZEPAM 5 MG TAB PO PRN (21:27)
[2017-11-21] MEDS: HEPARIN 5,000 UNIT/0.5 ML SYR SC SCH (21:30)
[2017-11-22] MEDS: IBUPROFEN 600 MG TAB PO PRN ×2 (03:53→21:09)
[2017-11-22] MEDS: HEPARIN 5,000 UNIT/0.5 ML SYR SC SCH (06:49)
[2017-11-22] MEDS ORDERED: POVIDONE-IODINE 20 ML in SODIUM CL IRRIG SOLUTION 500 ML IRR ONE (07:35)
[2017-11-22] MEDS ORDERED: ACETAMINOPHEN 325 MG TAB PO ONE (07:35)
[2017-11-22] MEDS ORDERED: DEXAMETHASONE 4 MG/ML VIAL IVP ONE (07:35)
[2017-11-22] MEDS ORDERED: ROPIVACAINE 0.2% 80 MG, EPINEPHrine 0.2 MG, KETOROLAC TROMETHAMINE 30 MG in SYRINGE 0 ML IU ONE (07:35)
[2017-11-22] MEDS ORDERED: FAMOTIDINE 20 MG TAB PO ONE (07:35)
[2017-11-22] MEDS ORDERED: ceFAZolin 2 GM/SWFI 2 GM/20 ML SYR IVP ONE (07:35)
[2017-11-22] MEDS ORDERED: TRANEXAMIC ACID 1,000 MG in NS 100 ML IV ONE (07:35)
[2017-11-22] MEDS ORDERED: ONDANSETRON 4 MG/2 ML VIAL IVP ONE (07:35)
[2017-11-22] MEDS ORDERED: GABAPENTIN 300 MG CAP PO ONE (07:35)
--- NOTE | 2017-11-22 07:35 | SOAPPROG ---
SUZI Progress Note Assessment/Plan: Assessment: Emmanuel is known to me. Recurrent dislocation of right JOSAFAT. Plan: Revision surgery Sunday at 9:30am. Surgery and risks described to pt. Questions answered. 11/22/17 07:34 Objective: Vital Signs Temp Pulse Resp BP Pulse Ox 36.8 C 70 15 121/78 H 94 11/22/17 07:28 11/22/17 07:28 11/22/17 07:28 11/22/17 07:28 11/22/17 07:28 Laboratory Results 11/21/17 09:30 11/21/17 09:30 11/21/17 11/22/17 11/23/17 05:59 05:59 05:59 Intake Total 500 Balance 500 ICD10 Worksheet Patient Problems: Problems Problem Status Onset Hip dislocation, right Acute
--- NOTE | 2017-11-22 08:02 | GHP ---
[f rep st] PREOP HISTORY AND PHYSICAL DATE OF ADMISSION: 11/21/2017 ORTHOPEDIC CONSULTATION PROBLEM: Recurrent dislocation of the right hip. HISTORY OF PRESENT ILLNESS: The patient is 67 years old. In March of 2014, he underwent a right total hip arthroplasty in [facility]. Approximately year later the hip dislocated. Since then he h as had multiple dislocations. Over the weekend it dislocated 3 or 4 times and he was in the emergenc y room multiple times. It dislocated again yesterday and he was admitted to the hospital. On exam he is a healthy alert man. He has a posterior incision from his previous surgery. His sciat ic nerve was intact. The films show a press-fit right total hip arthroplasty. The stem looks good. It looks solid. His cup is quite vertical and he has very little anteversion of the cup. The head may be sitting eccentr ically in the polyethylene liner because of excessive wear. ADMITTING IMPRESSION: Status post right total hip arthroplasty with recurrent dislocation. He will undergo revision surgery. I plan on removing his current cup. I will reposition it in a mor e horizontal position with more anteversion. I will also try to lengthen him if I have that option. I will probably use a larger femoral head as well. The surgery has been described to him, including the risks, complications, expectations, and recovery time. I have discussed with him the risk of infection. There is still a risk of dislocation, even with revision surgery. Sciatic nerve injury is a possibility. I have advised him that I probably wi ll be lengthening the leg. All his questions have been answered, and he consents to surgery. /[id number]/MODL
[2017-11-22] MEDS: SENNOSIDES/DOCUSATE SODIUM TAB PO SCH ×2 (10:09→20:37)
[2017-11-22] MEDS: amLODIPine BESYLATE 5 MG TAB PO SCH (10:09)
--- NOTE | 2017-11-22 13:43 | HOSPPROG ---
Hospitalist Progress Note Assessment/Plan: Hip dislocation, right (Acute) - recurrent dislocations. S/P reduction in ED with good position on post-reduction film. Now with hip stabilizer, pain controlled. -ortho consulted, plan for revision surgery in am -pain control with nsaid's, vicodin, prn dilaudid Constipation - likely hastened by opiates -bowel protocol Hypertension - cont amlodipine DVT PPLX - high risk with mobility issues, heparin held for OR in am Full code Dispo - cont inpt, will need post-op PT/OT Subjective: Pt feeling bored. C/O some muscular pain in his neck. No further hip dislocations. Otherwise doing well. Objective: Vital Signs Temp Pulse Resp BP Pulse Ox 37.1 C 69 16 122/88 H 94 11/22/17 11:33 11/22/17 11:33 11/22/17 11:33 11/22/17 11:33 11/22/17 11:33 Laboratory Results 11/21/17 09:30 11/21/17 09:30 11/21/17 11/22/17 11/23/17 05:59 05:59 05:59 Intake Total 500 300 Balance 500 300 - Physical Exam Constitutional: no apparent distress Eyes: PERRL Ears, Nose, Mouth, Throat: moist mucous membranes Cardiovascular: regular rate and rhythym Respiratory: no respiratory distress, clear to auscultation Gastrointestinal: normoactive bowel sounds, soft, non-tender abdomen Skin: warm Musculoskeletal: full muscle strength Neurologic: AAOx3 Psychiatric: interacting appropriately ICD10 Worksheet Patient Problems: Problems Problem Status Onset Hip dislocation, right Acute
--- NOTE | 2017-11-22 14:12 | ASMTCMCOM ---
CM Note CM Note Notes: Pt in for recurrent hip dislocations, to OR tomorrow for revision. PT/OT to eval after surgery. CM to follow. Date Signed: 11/22/2017 02:12 PM Electronically Signed By:RENATA Schreiber
[2017-11-22] MEDS: DIAZEPAM 5 MG TAB PO PRN ×2 (14:27→21:09)
[2017-11-22] MEDS: HYDROCODONE/APAP 5/325 TAB PO PRN (17:48)
[2017-11-22] MEDS: TEMAZEPAM 15 MG CAP PO PRN (21:09)
[2017-11-23] MEDS ORDERED: FAMOTIDINE 20 MG TAB PO ONE ×2 (07:00→09:30)
[2017-11-23] MEDS ORDERED: ceFAZolin 2 GM/SWFI 2 GM/20 ML SYR IVP ONE ×3 (07:00→09:30)
[2017-11-23] MEDS ORDERED: DEXAMETHASONE 4 MG/ML VIAL IVP ONE ×2 (07:00→09:30)
[2017-11-23] MEDS ORDERED: TRANEXAMIC ACID 1,000 MG in NS 100 ML IV ONE (07:00)
[2017-11-23] MEDS ORDERED: GABAPENTIN 300 MG CAP PO ONE ×2 (07:00→09:30)
[2017-11-23] MEDS ORDERED: POVIDONE-IODINE 20 ML in SODIUM CL IRRIG SOLUTION 500 ML IRR ONE (07:00)
[2017-11-23] MEDS ORDERED: ACETAMINOPHEN 325 MG TAB PO ONE ×2 (07:00→09:30)
[2017-11-23] MEDS ORDERED: ROPIVACAINE 0.2% 80 MG, EPINEPHrine 0.2 MG, KETOROLAC TROMETHAMINE 30 MG in SYRINGE 0 ML IU ONE (07:00)
[2017-11-23] MEDS ORDERED: ceFAZolin 1 GM/5 ML SYR ONE (09:02)
[2017-11-23] MEDS ORDERED: LR 1,000 ML IV ONE (09:15)
--- NOTE | 2017-11-23 09:19 | PDANEPAE ---
ANE History of Present Illness Revision right JOSAFAT ANE Past Medical History - Cardiovascular History Hx Hypertension: Yes Hx Arrhythmias: No Hx Chest Pain: No Hx Coronary Artery / Peripheral Vascular Disease: No Hx CHF / Valvular Disease: No Hx Palpitations: No - Pulmonary History Hx Asthma/Reactive Airway Disease: Yes Hx Recent Upper Respiratory Infection: No Hx Oxygen in Use at Home: No Hx Sleep Apnea: No Sleep Apnea Screening Result - Last Documented: Positive - Endocrine History Hx Diabetes: No Hypothyroid: No Hyperthyroid: No Obesity: no - Renal History Hx Renal Disorders: No ANE Review of Systems Review of Systems: - Exercise capacity METS (RN): 4 METS ANE Patient History - Allergies Allergies/Adverse Reactions: ketamine Allergy (Verified 11/20/17 08:47) - Home Medications Home medications: home medication list seen and reviewed Home Medications: Meloxicam 7.5 mg PO BID PRN 11/17/17 [Last Taken 11/17/17] Temazepam [Restoril 15 MG (*)] 15 mg PO HS PRN 11/17/17 [Last Taken 11/17/17] Albuterol [Proventil Inhaler HFA (*)] 1 - 2 puffs IH DAILY PRN 11/21/17 [Last Taken Unknown] Glucosamine Sulfate [Glucosamine Sulfate 500 MG (*)] 500 mg PO DAILY 11/21/17 [ Last Taken 11/20/17] Hydrocodone/APAP 5/325 [[place] 5/325 (RX)] 1 - 2 tab PO Q4H PRN 11/21/17 [Last Taken 11/20/17 09:00] Ibuprofen [Motrin (*)] 200 mg PO DAILY PRN 11/21/17 [Last Taken Unknown] Multivitamins [Multivitamin (*)] 1 each PO DAILY 11/21/17 [Last Taken 11/20/17] Tears/Dextran 70/Hypromellose [Natural Balance Tears (*)] 1 drop EACHEYE Q2 PRN 11/21/17 [Last Taken Unknown] amLODIPine BESYLATE [Norvasc 5 mg (*)] 5 mg PO DAILY 11/21/17 [Last Taken ] - NPO status NPO Status: no food or drink >8 hours NPO Since - Liquids (Date): 11/23/17 NPO Since - Liquids (Time): 00:00 NPO Since - Solids (Date): 11/23/17 NPO Since - Solids (Time): 00:00 - Anes Hx Anes Hx: no prior problems - Smoking Hx Smoking Status: Never smoked - Alcohol Use Alcohol Use: Sober - Family Anes Hx Family Anes Hx: none ANE Labs/Vital Signs - Labs Result Diagrams: 11/21/17 09:30 11/21/17 09:30 - Vital Signs Blood Pressure: 142/87 Heart Rate: 69 Respiratory Rate: 16 O2 Sat (%): 95 Height: 180.34 cm Weight: 83.915 kg ANE Physical Exam - Airway Neck exam: decreased ROM Mallampati Score: Class 2 Mouth exam: normal dental/mouth exam - Pulmonary Pulmonary: no respiratory distress, no rales or rhonchi - Cardiovascular Cardiovascular: regular rate and rhythym, no murmur, rub, or gallop ANE Anesthesia Plan Anesthesia Plan: spinal (Sedation)
[2017-11-23] MEDS ORDERED: MIDAZOLAM 2 MG/2 ML VIAL IVP ONE (10:07)
[2017-11-23] MEDS ORDERED: MIDAZOLAM 2 MG/2 ML VIAL ONE ×2 (10:11→10:18)
[2017-11-23] MEDS ORDERED: BUPIVACAINE 0.5% 30 ML SDV ONE (10:16)
[2017-11-23] MEDS ORDERED: PROPOFOL/EMULSION 500 MG/50 ML BOTTLE IV ONE (10:17)
[2017-11-23] MEDS ORDERED: fentaNYL 100 MCG/2 ML INJ ONE (10:18)
[2017-11-23] MEDS ORDERED: epHEDrine SULFATE 10 MG/ML SYR ONE (11:07)
[2017-11-23] MEDS ORDERED: PHENYLEPHRINE HCL 100 MCG/ML SYR ONE (11:07)
[2017-11-23] MEDS ORDERED: PROPOFOL 200 MG/20 ML VIAL ONE (11:50)
[2017-11-23] MEDS ORDERED: METOCLOPRAMIDE 10 MG/2 ML VIAL IVP PRN (12:09)
[2017-11-23] MEDS ORDERED: traMADol 50 MG TAB PO PRN (12:09)
[2017-11-23] MEDS ORDERED: DIPHENOXYLATE/ATROPINE LOMOTIL 1 TAB PO PRN (12:09)
[2017-11-23] MEDS ORDERED: CYCLOBENZAPRINE 10 MG TAB PO PRN (12:09)
[2017-11-23] MEDS ORDERED: NS 500 ML IV PRN (12:09)
[2017-11-23] MEDS ORDERED: oxyCODONE IR 5 MG TAB PO PRN (12:09)
[2017-11-23] MEDS ORDERED: PROMETHAZINE HCL 25 MG/ML INJ IVP PRN (12:09)
[2017-11-23] MEDS ORDERED: ONDANSETRON DISINTEGRATING 4 MG TAB PO PRN (12:09)
[2017-11-23] MEDS ORDERED: diphenhydrAMINE 25 MG CAP PO PRN (12:09)
[2017-11-23] MEDS ORDERED: PROMETHAZINE HCL 25 MG SUPPR PR PRN (12:09)
[2017-11-23] MEDS ORDERED: ONDANSETRON 4 MG/2 ML VIAL IVP PRN (12:24)
[2017-11-23] MEDS ORDERED: LR 500 ML IV PRN (12:24)
[2017-11-23] MEDS ORDERED: NALOXONE HCL 0.4 MG/ML INJ IVP PRN (12:24)
[2017-11-23] MEDS ORDERED: HYDROmorphONE/DILAUDID 2 MG/ML INJ IVP PRN (12:24)
[2017-11-23] MEDS ORDERED: fentaNYL 100 MCG/2 ML INJ IVP PRN (12:24)
[2017-11-23] MEDS ORDERED: LR 1,000 ML IV SCH (12:30)
--- NOTE | 2017-11-23 12:39 | POSTOPPROG ---
Post Op Note Date of Operation: 11/23/17 Surgeon: Floyd Mcduffie Management Advisor: Laureen Anesthesiologist: Claudio Anesthesia: IV Sedation, Spinal Post-op Diagnosis: recurrent dislocation right JOSAFAT Procedure: Revision head and cup right hip Inf/Abcess present in the surg proc area at time of surgery?: No EBL: 100-500
--- NOTE | 2017-11-23 13:25 | GOP ---
[f rep st] OPERATIVE REPORT DATE OF OPERATION: 11/23/2017 SURGEON: Floyd Mcduffie MD RADIO TIME SALESPERSON: Kemar Barraza. Jaguar Arroyo. ANESTHESIA: A combination of Marcaine, spinal, and IV sedation. ANESTHESIOLOGIST: Dana Snyder. PREOPERATIVE DIAGNOSIS: Status post right total hip arthroplasty with failure secondary to recurrent dislocation. POSTOPERATIVE DIAGNOSIS: Status post right total hip arthroplasty with failure secondary to recurrent dislocation. PROCEDURE PERFORMED: Revision right total hip arthroplasty with revision of femoral head and acetabular component. FINDINGS: ESTIMATED BLOOD LOSS: About 400 mL. The sponge and needle count were correct on 2 occasions. I used a Diane Trident II Tritanium cluster hole acetabular shell with an outside diameter of 60 mm and press-fit. The liner was a 0-degree Diane Trident X3 polyethylene liner. The femoral head was a Biolox standard 0 mm neck with a 32 mm outside diameter. I also used an aluminum sleeve. Dr. Kemar Barraza and Jaguar Arroyo acted as surgical assistants. Their assistance was a medical necessity for safe completion of the procedure. DESCRIPTION OF PROCEDURE: The patient was given 2 g of IV Ancef within 60 minutes of surgery. He also received IV tranexamic acid at a dose of 1000 mg. He was placed on the operating room table and given spinal anesthesia with Marcaine by Dr. Snyder. He was then placed supine and given IV sedation. A Aslinas catheter was not used. He wore a SUNIL stocking and SCD on the nonoperative leg. He was rolled to the left lateral decubitus position. The position was secured with the pegboard table attachment. An axillary roll was used and all pressure points were carefully padded. I was careful to lock his pelvis in a rigid vertical position. His perineum was isolated with plastic adhesive drapes. His right hip and right lower extremity were prepped with ChloraPrep. They were draped free using sterile sheets, stockinette, and Ioban plastic adhesive drapes. The [employer] time-out was performed to verify the correct surgical side and site and the correct patient identity. The [place] time-out was also performed. The patient had a pre-existing curved posterolateral incision which was too far anterior for my purposes. I made a fresh incision about 6 inches in length in the posterolateral hip area. Subcutaneous tissues were sharply divided, and hemostasis was obtained using electrocautery. The fascia was identified and split proximally along the axis of its fibers. There was a large subfascial hematoma. I cultured the bloody fluid. I curved posteriorly and proximally and split the fascia of the gluteus flaquito and bluntly split the muscle fibers in line with their orientation. He had complete disruption of the external rotators and the posterior hip capsule. With a little bit of internal rotation of the hip I could look directly into the prosthetic components. I dissected up along the anterosuperior margin of the acetabular component. I was able to create a soft tissue pocket in that area where I could displace the trunnion of the femoral component. The hip was dislocated posteriorly. I made a careful assessment as to why the hip was recurrently dislocating. The cup was rather vertical. It had very little anteversion. By the wear pattern of the polyethylene, it looked like the hip was dislocating superiorly. There was wear of the polyethylene at about the 12 o'clock to 1 o'clock position on the face of the polyethylene. The Charnley self-retaining retractor was inserted. His sciatic nerve was imbedded in scar tissue posteriorly. I made my limited dissection directly along the posterior margin of the greater trochanter and tried to stay as far away from the sciatic nerve as possible. A smooth 8-inch Steinmann pin was inserted vertically into the ilium superior to the acetabulum. An 1/8-inch drill bit was inserted vertically into the greater trochanter and parallel to the first pin. The distance between the 2 was measured for leg length reference. The hip was dislocated posteriorly. I used a bone tamp and a mallet to tap off the femoral head. There was some metallic staining on the inferior aspect of the femoral head where I believe it was rubbing on the acetabular metal shell as the ball dislocated superiorly. The trunnion portion of the femoral component was subluxed anteriorly and held with a retractor. This gave me good exposure to the face of the acetabular component. He had a 10-degree lipped liner with the overhang directly posterior. I used an osteotome to remove the old polyethylene. I then used the [place]ba Explant device and made multiple passes with the curved blade posteriorly at the interface between the metal shell and his acetabular bone. This was repeated multiple times until I loosened the component. It was able to be removed without difficulty. I did not lose any significant bone from the acetabular wall. There were no defects in the medial wall. I reamed sequentially up to 59 mm. I selected a 60 mm Trident II Tritanium cluster hole acetabular shell. This was inserted and tapped securely into place. It was very good fixation. I placed more anteversion on this cup than his previous cup. I also tried to close the cup abduction angle. I took an intraoperative cross-table AP pelvis x-ray. I still felt the cup was still a little bit too vertical. There was good anteversion. I then went back and adjusted the cup to close the angle about 5 additional degrees. I did a trial reduction. The head that was removed was a Biomet Taperloc head. It was a 32 mm ceramic head with a -3 mm neck length. I did a trial reduction with a 36 mm head with a 0 mm neck length. The hip was reduced. Stability was excellent posteriorly, anteriorly, and superiorly. The Biomet Biolox 36 mm head with a 0 neck length and an aluminum sleeve were then tapped securely onto the trunnion of the femoral component. I selected a 0 -degree [place] X3 highly cross-linked liner. This was tapped securely into the acetabular shell. The hip was thoroughly irrigated one final time with a dilute Betadine solution. The hip was reduced. Stability was checked and was excellent. Leg length was appropriate. 40 mL of the joint anesthetic cocktail was injected into the capsule, the deep musculature, and the subcutaneous tissues along the skin edges. The joint was thoroughly irrigated one final time with a dilute Betadine solution. The remnant of his scarred external rotators and posterior capsule was repaired and reapproximated to the posterior margin of the greater trochanter. With 2 # 2 FiberWire sutures through drill holes in the greater trochanter. This provided a substantial posterior soft tissue repair. The fascia rebecca was closed first with 2 #2 [id number] FiberWire sutures followed by a running #2 barbed Ethicon Stratafix PDO suture. The subcutaneous tissues were closed with a running 0 barbed Ethicon Stratafix Monoderm suture. The skin was closed with a running 3-0 barbed Ethicon Stratafix Monoderm subcuticular suture. The skin edges were reapproximated and sealed with Dermabond glue. The wound was covered with of piece of sterile waterproof Mepilex surgical dressing. The Mepilex sacral dressing was also applied. A long-leg SUNIL stocking and SCD were applied to his right lower extremity. He wore a stocking and SCD on the opposite leg during the procedure. An abduction pillow was placed between his knees. He was awakened from anesthesia and rolled to the supine position on his [facility]. He was taken to PACU in satisfactory condition. There were no recognized intraoperative complications. /[id number]/MODL MTDD
[2017-11-23] MEDS: HYDROCODONE/APAP 5/325 TAB PO PRN (15:04)
--- NOTE | 2017-11-23 15:04 | HOSPPROG ---
Hospitalist Progress Note Assessment/Plan: Hip dislocation, right (Acute) - S/P revision by Dr. Mcduffie today, POD #0 -pain control with nsaid's, vicodin, prn dilaudid -PT/OT Constipation - likely hastened by opiates -bowel protocol Hypertension - cont amlodipine DVT PPLX - heparin held for OR today, resume per surg Full code Dispo - cont inpt, PT/OT Objective: Vital Signs Temp Pulse Resp BP Pulse Ox 36.6 C 73 20 98/67 L 98 11/23/17 14:52 11/23/17 14:52 11/23/17 14:52 11/23/17 14:52 11/23/17 14:52 Microbiology 11/23/17 11:03 Gram Stain - Final Hip - Eswab 11/23/17 11:03 Mycobacterial Smear (RANDY) - Final Hip - Eswab Mycobacterial Culture - Final Laboratory Results 11/21/17 09:30 11/21/17 09:30 11/22/17 11/23/17 11/24/17 05:59 05:59 05:59 Intake Total 500 2200 200 Output Total 350 Balance 500 1850 200 ICD10 Worksheet Patient Problems: Problems Problem Status Onset Hip dislocation, right Acute
[2017-11-23] MEDS: amLODIPine BESYLATE 5 MG TAB PO SCH (16:43)
[2017-11-23] MEDS: SENNOSIDES/DOCUSATE SODIUM TAB PO SCH ×2 (16:43→20:41)
[2017-11-23] MEDS: KETOROLAC 15 MG/1 ML SDV IVP SCH (18:13)
[2017-11-23] MEDS: ceFAZolin 2 GM/SWFI 2 GM/20 ML SYR IVP SCH (18:20)
[2017-11-23] MEDS: ACETAMINOPHEN 325 MG TAB PO SCH (18:20)
[2017-11-23] MEDS: ASPIRIN 325 MG TAB PO SCH (20:40)
[2017-11-23] MEDS: DIAZEPAM 5 MG TAB PO PRN (20:41)
[2017-11-23] MEDS: FAMOTIDINE 20 MG TAB PO SCH (20:41)
[2017-11-24] MEDS: ACETAMINOPHEN 325 MG TAB PO SCH ×3 (01:07→13:02)
[2017-11-24] MEDS: ceFAZolin 2 GM/SWFI 2 GM/20 ML SYR IVP SCH (01:08)
[2017-11-24] MEDS: KETOROLAC 15 MG/1 ML SDV IVP SCH ×3 (01:08→13:04)
[2017-11-24] MEDS: TEMAZEPAM 15 MG CAP PO PRN (01:18)
[2017-11-24 07:43] VITALS: BP 135/86
[2017-11-24] MEDS: ASPIRIN 325 MG TAB PO SCH (10:01)
[2017-11-24] MEDS: SENNOSIDES/DOCUSATE SODIUM TAB PO SCH (10:01)
[2017-11-24] MEDS: FAMOTIDINE 20 MG TAB PO SCH (10:02)
[2017-11-24] MEDS: amLODIPine BESYLATE 5 MG TAB PO SCH (10:02)
--- NOTE | 2017-11-24 10:14 | SOAPPROG ---
SOAP Progress Note Assessment/Plan: Assessment: 67-year-old male postop day 1 status post right total hip revision acetabular component. Plan: Weight bear as tolerated with PT OT Posterior hip precautions for 3 weeks Aspirin for 21 days Oxycodone tramadol and Valium as needed for pain control and muscle spasms respectively Incentive spirometry 10 times per hour Follow up with Dr. Floyd Mcduffie in 3 weeks. Appointment has been set. Disposition: Likely home today if medically cleared 11/24/17 10:11 Subjective: No acute events overnight. Pain well controlled. Denies fevers chills nausea vomiting chest pain shortness of breath. Objective: Vital Signs Temp Pulse Resp BP Pulse Ox 36.4 C 71 16 135/86 H 96 11/24/17 07:42 11/24/17 07:42 11/24/17 07:42 11/24/17 07:42 11/24/17 07:42 Microbiology 11/23/17 11:03 Gram Stain - Final Hip - Eswab 11/23/17 11:03 Mycobacterial Smear (RANDY) - Final Hip - Eswab Mycobacterial Culture - Final Laboratory Results 11/24/17 04:15 11/21/17 09:30 11/23/17 11/24/17 11/25/17 05:59 05:59 05:59 Intake Total 2200 650 Output Total 350 750 Balance 1850 -100 Awake alert oriented x3 No acute distress Easy nonlabored breathing Right hip and lower extremity: Dressing clean dry intact no erythema drainage or signs of infection Mild swelling and ecchymosis Compartments soft and compressible Sensation intact to light touch from L4-S1 Palpable DP PT pulses Intact EHL FHL tibialis anterior gastrocsoleus No calf pain - Time Spent With Patient Time Spent With Patient: 10 ICD10 Worksheet Patient Problems: Problems Problem Status Onset Hip dislocation, right Acute
--- NOTE | 2017-11-24 12:23 | PDIAF ---
- Diagnosis Diagnosis: s/p right hip revision Code Status: Full Code - Medication Management Discharge Medications: Medications to Continue on Transfer Meloxicam 7.5 mg PO BID PRN 11/17/17 [Last Taken 11/17/17] Temazepam [Restoril 15 MG (*)] 15 mg PO HS PRN 11/17/17 [Last Taken 11/17/17] Albuterol [Proventil Inhaler HFA (*)] 1 - 2 puffs IH DAILY PRN 11/21/17 [Last Taken Unknown] Glucosamine Sulfate [Glucosamine Sulfate 500 MG (*)] 500 mg PO DAILY 11/21/17 [ Last Taken 11/20/17] Hydrocodone/APAP 5/325 [Snyder 5/325 (*)] 1 - 2 tab PO Q4H PRN 11/21/17 [Last Taken 11/20/17 09:00] Multivitamins [Multivitamin (*)] 1 each PO DAILY 11/21/17 [Last Taken 11/20/17] Tears/Dextran 70/Hypromellose [Natural Balance Tears (*)] 1 drop EACHEYE Q2 PRN 11/21/17 [Last Taken Unknown] amLODIPine BESYLATE [Norvasc 5 mg (*)] 5 mg PO DAILY 11/21/17 [Last Taken ] Aspirin [Aspirin 325 mg (*)] 325 mg PO DAILY #30 tab 11/24/17 [Last Taken Unknown] Diazepam [Valium 5 MG (*)] 5 mg PO Q6 PRN #40 tab 11/24/17 [Last Taken Unknown] Sennosides/Docusate Sodium [Senokot-S] 1 - 2 tab PO BID tab 11/24/17 [Last Taken Unknown] oxyCODONE IR [Oxycodone Ir (*)] 5 - 10 mg PO Q3HRS PRN #20 tab 11/24/17 [Last Taken Unknown] Discharge Medications: Refer to the Discharge Home Medication list for PRN reason. - Orders Services needed: Home Care, Physical Therapy Home Care Face to Face: I certify that this patient was under my care and that I had the required [id number] encounter meeting the encounter requirements on the discharge day. My findings support the fact that the patient is homebound as defined in Home Care Face to Face Continued: CMS Chapter 7 Medicare Benefits Manual 30.1.1 , The condition of the patient is such that there exists a normal inability to leave home and consequently, leaving home would require a considerable and taxing effort. Diet Recommendation: no restrictions on diet Additional Instructions: Take Aspirin 325 mg daily for 21 days. Follow up with Dr. Mcduffie. Home PT ordered. - Follow Up Care Current Providers and Referrals: Patient,NotPresent [Unknown] - As per Instructions Floyd Mcduffie MD [Medical Doctor] -
[2017-11-24] MEDS: HYDROCODONE/APAP 5/325 TAB PO PRN (12:59)
--- NOTE | 2017-11-24 14:09 | POSTANESTH ---
Post Anesthetic Evaluation Cardiovascular Status: Normal, Stable Respiratory Status: Normal, Stable Level of Consciousness/Mental Status: Can Participate in Eval Pain Control: Adequate, Prn Tx Ordered Nausea/Vomiting Control: Adequate, Prn Tx Ordered Complications Possibly Related to Anesthesia: None Noted
--- NOTE | 2017-11-24 16:26 | ASMTLACE ---
BEATRICEE Length of stay for Answers: 3 days current admission Acuity / Level of Answers: Yes Care: Did the patient have an inpatient admission? # of Emergency department Answers: 3-4 visits in the last 6 months Score: 9 Date Signed: 11/24/2017 12:58 PM Electronically Signed By:Jo Ann Snyder RN
--- NOTE | 2017-11-24 16:36 | GDS ---
[f rep st] DISCHARGE SUMMARY DISCHARGE DIAGNOSES: 1. Recurrent right hip dislocation. 2. Status post right total hip arthroplasty revision. HISTORY: For details, please see History and Physical dated November 21, 2017. In brief, the patient is a 67-year-old male who underwent total hip arthroplasty in [facility] in 2014. Over the 5 days prior to admission, he had had 5 hip dislocations. He was admitted to the hospital for stabilization, pain control, and hip revision by Orthopedic Surgery. HOSPITAL COURSE: Patient was admitted to the ortho unit for pain control and therapy. Orthopedic Cervantes rgery was consulted. He underwent hip revision surgery on November 23, 2017. His postop course was uncom plicated. He has been ambulating with therapy. He has good support at home and is agreeable to home health services. Orthopedic Surgery recommends aspirin therapy for 21 days for DVT prophylaxis. I did consider Lovenox. However, I think since this is a revision surgery, rather than acute hip fract ure and keeping in mind his overall good mobility, I am comfortable with daily aspirin as recommended by Orthopedic Surgery. DISPOSITION: Patient is discharged home in stable condition with home health for PT/OT. FOLLOWUP: Dr. Floyd Mcduffie. DISCHARGE MEDICATIONS: Please see [facility] for completed outpatient medication list. New medications on discharge include aspirin 325 mg p.o. daily, #21, no refills. Valium 5 mg p.o. q. 6 hours p.r.n., #40, prescribed by Orthopedic Surgery. Oxycodone 5-10 mg p.o. q.3 hours p.r.n., #20. Devinot 1-2 tabs p.o. b.i.d. /[id number]/MODL
--- NOTE | 2017-11-28 13:41 | ASDISCHSUM ---
Discharge Information Plan Status:Home with No Needs Medically Cleared to Leave:11/24/2017 Discharge Date:11/24/2017 CM D/C Disposition:Home, Routine, Self-Care ADT D/C Disposition:Home, Routine, Self-Care Projected Discharge Date:11/24/2017 Transportation at D/C:Family Discharge Delay Reason: Follow-Up Date:11/24/2017 Discharge Slot: Final Diagnosis: Placement Information Patient Contact Information Contact Name:MARTHA Relationship:Delma Address: Work Phone: City: [facility] Phone: State/Zip Code: Email: Financial Information Financial Class:Medicare Advantage Plans Primary Plan Desc:[facility] [employer] Primary Plan Number:[id number] Secondary Plan Desc: Secondary Plan Number: Assessment Information LACE LACE Length of stay for Answers: 3 days current admission Acuity / Level of Answers: Yes Care: Did the patient have an inpatient admission? # of Emergency department Answers: 3-4 visits in the last 6 months Score: 9 Date Signed: 11/24/2017 12:58 PM Electronically Signed By:Jo Ann Snyder RN [facility] CM Progress Note CM Note CM Note Notes: Pt in for recurrent hip dislocations, to OR tomorrow for revision. PT/OT to eval after surgery. CM to follow. Date Signed: 11/22/2017 02:12 PM Electronically Signed By:RENATA Schreiber Case Management Discharge Plan Note Case Management Discharge Discharge Order Complete? Answers: Yes Patient to Obtain Answers: Independently Medications Transportation Arranged Answers: Family/Friends Discharge Comments Notes: 11/24/2017 Case Management Note Met w/pt to discuss dispo plan. Pt lives remotely and case management was unable to find home care agency to staff location. Pt uncertain if home care was necessary given this is his second hip surgery. Pt plans to follow up with [facility] and participate in outpatient PT there. Pt girlfriend Quin Gallagher to transport home. Additional friend to stay with pt for a few days after discharge. There are no further d/c needs identified. Date Signed: 11/24/2017 12:58 PM Electronically Signed By:Jo Ann Snyder RN Intervention Information
== END 2017-11-24 14:30 | disposition home health service (06) | DRG 468 ==
LOC: EDUNIT# → OBSVTOIN 08:27 → F3N 09:42
PROVIDERS: ADMIT Hospitalist; ATTEND Hospitalist
PROC: 0SS9XZZ Reposition Right Hip Joint, External Approach (ICD-10-PCS; 2017-11-21)
PROC: 0SP909Z Removal of Liner from Right Hip Joint, Open Approach (ICD-10-PCS; principal; 2017-11-23 09:30)
PROC: 0SUA09Z Supplement Right Hip Joint, Acetabular Surface with Liner, Open Approach (ICD-10-PCS; principal; 2017-11-23 09:30)
PROC: 0SP90JZ Removal of Synthetic Substitute from Right Hip Joint, Open Approach (ICD-10-PCS; principal; 2017-11-23 09:30)
PROC: 0SRR03A Replacement of Right Hip Joint, Femoral Surface with Ceramic Synthetic Substitute, Uncemented, Open Approach (ICD-10-PCS; principal; 2017-11-23 09:30)
DX: T84.020A Dislocation of internal right hip prosthesis, initial encounter (principal); K59.03 Drug induced constipation; T40.2X5A Adverse effect of other opioids, initial encounter; I10 Essential (primary) hypertension
CPT/HCPCS: 96374; 97116-GP; 97161-GP; 97165-GO; 97530-GP; G8978-GP-CI; G8979-GP-CH; G8980-GP-CI; G8987-GO-CI; G8988-GO-CI; J0171; J0690; J1100; J1644; J1885; J2250; J2370; J2704; J2795; J3010